=== PATIENT | female | born 1965 | race Hispanic/Latino ===

== ENCOUNTER 2023-04-11 15:19 | Inpatient (IN) | payer SELFPAY ==
[2023-04-11] VITALS (21 sets, daily range): BP systolic 89–116; BP diastolic 6–61; PULSE 85–96; RESP 12–22; TEMP 36; O2SAT 96–100; BMI 27.5
[2023-04-11] MEDS: SODIUM CHLORIDE 0.9% 1,000 ML 1000 ML IV ×2 (15:27→16:50)
--- NOTE | 2023-04-11 15:34 | ED_ITS ---
HPI - General Adult General Chief complaint: Diabetic Problem Stated complaint: DIABETES/ HEART RATE Time Seen by Provider: 04/11/23 15:20 Source: patient and family Mode of arrival: Family Vehicle Limitations: language barrier History of Present Illness HPI narrative: Patient is a 58-year-old female. Is an insulin-dependent diabetic. Has been out of all of her medication for at least the past 24 hours. She has been out on [facility] for the past several days. She left her medication in [place]. She was seen yesterday and her blood sugar was elevated. It was recommended to her to come to the emergency department but they did not come until today. There is no signs of any trauma. Her has been providing much of the HPI has the patient has been unable to secondary to some altered mental status. She was able to state that she was not having chest pain or shortness of breath. There has been no recent illnesses. No recent fevers. Language line was used for this discussion. Related Data Home Medications Medication Instructions Recorded Confirmed losartan 50 mg tablet 50 mg PO DAILY 02/21/22 02/21/22 metformin 500 mg tablet 500 mg PO DAILY 02/21/22 02/21/22 Previous Rx's Medication Instructions Recorded prednisolone acetate 1 % eye See Rx Instructions .Route 02/21/22 drops,suspension (Pred Forte) .COMPLEX #5 mL Allergies Allergy/AdvReac Type Severity Reaction Status Date / Time No Known Drug Allergies Allergy Verified 04/11/23 15:35 Review of Systems Review of Systems Narrative: See HPI. Review of systems very limited secondary to patient's altered mental status. Patient History Medical History Diabetes Social History Smoking Status: Unknown if ever smoked Exam Initial Vital Signs Initial Vital Signs: Vital Signs Temperature 96.8 F L 04/11/23 15:19 Pulse Rate 89 04/11/23 15:19 Respiratory Rate 17 04/11/23 15:19 Blood Pressure 109/61 04/11/23 15:19 Pulse Oximetry 96 04/11/23 15:19 Oxygen Delivery Method Room Air 04/11/23 15:19 Const General: cooperative and ill appearing HENVA Head: normal to inspection and normocephalic Mouth: oral mucosae normal Resp Effort & Inspection: normal respiratory effort Auscultation: clear to auscultation bilaterally Cardio Rate: regular rate Rhythm: regular rhythm GI Inspection: normal to inspection and non-distended Skin General: no rashes or lesions noted Neuro General: patient alert, patient awake and moves all extremities Cognition: abnormal cognition Extrem General: No edema Scores GCS Yadira coma scale eye opening: Spontaneous [place] coma scale verbal response: Words Yadira coma scale motor response: Obey commands Yadira coma scale total score: 13 Course Orders Ordered: ED Orders 04/11/23 15:22 EKG-12 Lead Stat 04/11/23 15:34 Urinalysis and Microscopic Stat Urine Culture Stat Urine Drug Screen, Rapid Stat 04/11/23 15:43 VBG [Venous Blood Gas] Stat 04/11/23 15:45 Acetaminophen Stat Ammonia (NH3) Stat Complete Blood Count AUTO DIFF Stat Comprehensive Metabolic Panel Stat Ethanol (ETOH) Stat Ketones (Beta-Hydroxybutyrate) Stat Lactate (Lactic Acid) Stat Lipase Stat Magnesium Stat Phosphorous Stat Procalcitonin Stat Salicylate Stat Thyroid Stimulating Hormone Stat Troponin & CK Cardiac Panel Stat 04/11/23 16:05 Blood Culture Stat Acetaminophen (Acetaminophen 325 Mg Tablet) 650 mg PO Q6H PRN PRN Reason: Fever/Mild Pain (1-3) Dextrose (Dextrose 50 % In Water 25 Gm/50 Ml Syringe) 25 gm IV PRN PRN PRN Reason: Hypoglycemia Heparin Sodium (Porcine) (Heparin 5,000 Unit/Ml Vial) 5,000 unit SUBCUT BID GUANACO Sodium Chloride (Normal Saline 0.9%) 1,000 mls @ 200 mls/hr IV CONT GUANACO INSULIN DRIP PREMIX (Myxredlin Drip Premix) 100 unit in 100 mls @ 6 mls/hr IV TITRATE GUANACO; Protocol Last Admin: 04/11/23 17:05 Dose: 6 ml/hr, 6 mls/hr Documented By: SHANNA Co-signed By: TONI Metoclopramide HCl (Metoclopramide 10 Mg/2 Ml Inj) 10 mg IV Q6HR PRN PRN Reason: Nausea And Vomiting Naloxone HCl (Naloxone 0.4 Mg/Ml Vial) 0.2 mg IV Q2MIN PRN PRN Reason: Opiate Reversal Ondansetron HCl (Ondansetron 4 Mg/2 Ml Inj) 4 mg IV Q4HR PRN PRN Reason: Nausea And Vomiting Discontinued Medications Sodium Chloride (Normal Saline 0.9%) 1,000 mls @ 1,000 mls/hr IV BOLUS ONE Stop: 04/11/23 16:20 Last Infusion: 04/11/23 16:50 Dose: 0 mls/hr Documented By: Admin: 04/11/23 15:27 Dose: 1,000 mls/hr Documented By: TONI(2) Sodium Chloride (Normal Saline 0.9%) 1,000 mls @ 1,000 mls/hr IV BOLUS ONE Stop: 04/11/23 17:18 Last Admin: 04/11/23 16:50 Dose: 1,000 mls/hr Documented By: SHANNA Insulin Human Regular (Insulin Regular 100 Unit/Ml 3 Ml Vial) 11 unit IV NOW ONE Stop: 04/11/23 16:34 Last Admin: 04/11/23 16:51 Dose: 11 unit Documented By: SHANNA Co-signed By: TONI Vital Signs Vital signs: Vital Signs - 8 hr 04/11/23 15:19 Temperature 96.8 F L Pulse Rate 89 Respiratory Rate 17 Blood Pressure 109/61 Pulse Oximetry 96 Oxygen Delivery Method Room Air Medical Decision Making Medical Records Medical records reviewed: Yes I reviewed the patient's medical records. Lab Data Lab results reviewed: Yes I reviewed the patient's lab results. 04/11/23 15:45 04/11/23 15:45 Labs: Lab Results 04/11/23 04/11/23 04/11/23 Range/Units 15:43 15:45 15:45 WBC 25.8 H (4.5-11.0) X10^3/uL RBC 4.12 (4.0-5.2) X10^6/uL Hgb 12.2 (12.0-16.0) g/dL Hct 35.8 L (36-46) % MCV 86.9 (80-100) fL MCH 29.6 (26-34) PG MCHC 34.0 (30-36) % RDW 13.2 (11.6-14.8) % Plt Count 320 (150-400) X10^3/uL Neut % (Auto) Not Reportable Lymph % (Auto) Not Reportable [place] % (Auto) Not Reportable Eos % (Auto) Not Reportable Baso % (Auto) Not Reportable Lymph # (Auto) Not Reportable [place] # (Auto) Not Reportable Baso # (Auto) Not Reportable Total Counted 100 Seg Neutrophils % 79.0 H (38-70) % Band Neutrophils % 6.0 (3-7) % Lymphocytes % (Manual) 5.0 L (25-45) % Atypical Lymphs % 1.0 H ( - 0) % Monocytes % (Manual) 8.0 (2-11) % Metamyelocytes % 1.0 H (-0) % Neutrophils # (Manual) 41736 H (4374-3974) /uL Smudge Cells 1+ H RBC Morphology See below Antonia Cells 1+ H VBG pH 7.15 L* (7.33-7.43) VBG pCO2 27.6 L (45-50) mmHg VBG pO2 42 (35-45) mmHg VBG HCO3 10 L (24-28) mmol/L VBG Total CO2 11 L (24-29) mmol/L VBG O2 Saturation 65 L (70-75) % VBG Base Excess -19.0 L (0-4) mmol/L FiO2 21 Sodium 111 L* (137-145) mmol/L Potassium 4.3 (3.4-5.1) mmol/L Chloride 85 L (98-107) mmol/L Carbon Dioxide 6 L* (22-32) mmol/L BUN 68 H (7-17) mg/dL Creatinine 2.55 H (0.52-1.04) mg/dL Estimated GFR 22 L (>60) mL/min BUN/Creatinine Ratio 26.7 H (6-22) Glucose 625 H* (70-100) mg/dL Lactate (0.7-2.1) mmol/L Calcium 9.2 (8.4-10.2) mg/dL Phosphorus (2.5-4.5) mg/dL Magnesium (1.6-2.3) mg/dL Total Bilirubin 0.5 (0.2-1.3) mg/dL AST 17 (14-36) IU/L ALT 16 (<35) IU/L Alkaline Phosphatase 183 H (38-126) U/L Ammonia (9-30) umol/L Total Creatine Kinase (30-135) U/L Troponin I (0.01-0.034) ng/mL Total Protein 7.4 (6.3-8.2) g/dL Albumin 3.6 (3.5-5.0) g/dL Globulin 3.8 (1.7-4.1) g/dL Albumin/Globulin Ratio 0.9 L (1.0-2.8) Lipase (23-300) U/L Procalcitonin (<0.5) ng/mL TSH (0.47-4.68) uIU/mL Salicylates (<20) mg/dL Acetaminophen < 10 (10-30) ug/mL Ethyl Alcohol < 10 ( - 10) mg/dL Ketones 4.04 H (<0.27) mmol/L 04/11/23 04/11/23 04/11/23 Range/Units 15:45 15:45 15:45 WBC (4.5-11.0) X10^3/uL RBC (4.0-5.2) X10^6/uL Hgb (12.0-16.0) g/dL Hct (36-46) % MCV (80-100) fL MCH (26-34) PG MCHC (30-36) % RDW (11.6-14.8) % Plt Count (150-400) X10^3/uL Neut % (Auto) Lymph % (Auto) [place] % (Auto) Eos % (Auto) Baso % (Auto) Lymph # (Auto) [place] # (Auto) Baso # (Auto) Total Counted Seg Neutrophils % (38-70) % Band Neutrophils % (3-7) % Lymphocytes % (Manual) (25-45) % Atypical Lymphs % ( - 0) % Monocytes % (Manual) (2-11) % Metamyelocytes % (-0) % Neutrophils # (Manual) (8458-8380) /uL Smudge Cells RBC Morphology [place] Cells VBG pH (7.33-7.43) VBG pCO2 (45-50) mmHg VBG pO2 (35-45) mmHg VBG HCO3 (24-28) mmol/L VBG Total CO2 (24-29) mmol/L VBG O2 Saturation (70-75) % VBG Base Excess (0-4) mmol/L FiO2 Sodium (137-145) mmol/L Potassium (3.4-5.1) mmol/L Chloride (98-107) mmol/L Carbon Dioxide (22-32) mmol/L BUN (7-17) mg/dL Creatinine (0.52-1.04) mg/dL Estimated GFR (>60) mL/min BUN/Creatinine Ratio (6-22) Glucose (70-100) mg/dL Lactate 1.1 (0.7-2.1) mmol/L Calcium (8.4-10.2) mg/dL Phosphorus 3.5 (2.5-4.5) mg/dL Magnesium 2.5 H (1.6-2.3) mg/dL Total Bilirubin (0.2-1.3) mg/dL AST (14-36) IU/L ALT (<35) IU/L Alkaline Phosphatase (38-126) U/L Ammonia < 9 L (9-30) umol/L Total Creatine Kinase 99 (30-135) U/L Troponin I 0.095 H (0.01-0.034) ng/mL Total Protein (6.3-8.2) g/dL Albumin (3.5-5.0) g/dL Globulin (1.7-4.1) g/dL Albumin/Globulin Ratio (1.0-2.8) Lipase 896 H (23-300) U/L Procalcitonin 8.85 H (<0.5) ng/mL TSH (0.47-4.68) uIU/mL Salicylates < 1.0 (<20) mg/dL Acetaminophen (10-30) ug/mL Ethyl Alcohol ( - 10) mg/dL Ketones (<0.27) mmol/L 04/11/23 Range/Units 15:45 WBC (4.5-11.0) X10^3/uL RBC (4.0-5.2) X10^6/uL Hgb (12.0-16.0) g/dL Hct (36-46) % MCV (80-100) fL MCH (26-34) PG MCHC (30-36) % RDW (11.6-14.8) % Plt Count (150-400) X10^3/uL Neut % (Auto) Lymph % (Auto) [place] % (Auto) Eos % (Auto) Baso % (Auto) Lymph # (Auto) [place] # (Auto) Baso # (Auto) Total Counted Seg Neutrophils % (38-70) % Band Neutrophils % (3-7) % Lymphocytes % (Manual) (25-45) % Atypical Lymphs % ( - 0) % Monocytes % (Manual) (2-11) % Metamyelocytes % (-0) % Neutrophils # (Manual) (6914-5752) /uL Smudge Cells RBC Morphology Antonia Cells VBG pH (7.33-7.43) VBG pCO2 (45-50) mmHg VBG pO2 (35-45) mmHg VBG HCO3 (24-28) mmol/L VBG Total CO2 (24-29) mmol/L VBG O2 Saturation (70-75) % VBG Base Excess (0-4) mmol/L FiO2 Sodium (137-145) mmol/L Potassium (3.4-5.1) mmol/L Chloride (98-107) mmol/L Carbon Dioxide (22-32) mmol/L BUN (7-17) mg/dL Creatinine (0.52-1.04) mg/dL Estimated GFR (>60) mL/min BUN/Creatinine Ratio (6-22) Glucose (70-100) mg/dL Lactate (0.7-2.1) mmol/L Calcium (8.4-10.2) mg/dL Phosphorus (2.5-4.5) mg/dL Magnesium (1.6-2.3) mg/dL Total Bilirubin (0.2-1.3) mg/dL AST (14-36) IU/L ALT (<35) IU/L Alkaline Phosphatase (38-126) U/L Ammonia (9-30) umol/L Total Creatine Kinase (30-135) U/L Troponin I (0.01-0.034) ng/mL Total Protein (6.3-8.2) g/dL Albumin (3.5-5.0) g/dL Globulin (1.7-4.1) g/dL Albumin/Globulin Ratio (1.0-2.8) Lipase (23-300) U/L Procalcitonin (<0.5) ng/mL TSH 6.28 H (0.47-4.68) uIU/mL Salicylates (<20) mg/dL Acetaminophen (10-30) ug/mL Ethyl Alcohol ( - 10) mg/dL Ketones (<0.27) mmol/L Point of Care Testing Glucose POC 500 Point of care testing: Point of Care Testing Glucose POC 500 MDM Narrative Medical decision making narrative: Patient's participation in the exam is very limited secondary to her altered mental status. She is maintaining her airway and was able to answer some questions but her provided most of the review of systems and HPI. Patient has a pH of 7.1. Is hyperglycemic and has ketones. Her presenting symptoms and labs are consistent with DKA. Her potassium is 4.4. Her creatinine is elevated most likely secondary to dehydration. She also has a l eukocytosis most likely secondary to her DKA and dehydration as well. I have low suspicion for infection. She is hyponatremic and is still somewhat hyponatremic even with correction based on her hyperglycemia. She is an anion gap of 28. Patient does require admission to the hospital for further evaluation and treatment. I did discuss the case with Dr. Olson hospitalist on-call who will admit. Discharge Plan Departure Patient Disposition: Admitted As Inpatient Clinical Impression: DKA (diabetic ketoacidosis) Admit Date/Time: 04/11/23 16:29 Admit Provider: Eliu Olson
[2023-04-11 15:55] LABS: Fractionated Inspired Oxygen 21; HCO3 VBG 10 mmol/L (24-28); Oxygen Saturation VBG 65 % (70-75); PCO2 VBG 27.6 mmHg (45-50); PO2 VBG 42 mmHg (35-45); Total CO2 VBG 11 mmol/L (24-29); pH VBG 7.15 (7.33-7.43)
[2023-04-11 16:01] LABS: Hematocrit 35.8 % (36-46); Hemoglobin 12.2 g/dL (12.0-16.0); Mean Corpuscular Hemoglobin 29.6 PG (26-34); Mean Corpuscular Volume 86.9 fL (80-100); Platelet Count 320 X10^3/uL (150-400); Red Blood Cell Count 4.12 X10^6/uL (4.0-5.2); Red Cell Distribution Width 13.2 % (11.6-14.8); White Blood Cell Count 25.8 X10^3/uL (4.5-11.0)
[2023-04-11 16:02] LABS: Add Manual Diff / Slide Review YES; Ammonia (NH3) < 9 umol/L (9-30)
[2023-04-11 16:04] LABS: Lactate (Lactic Acid) 1.1 mmol/L (0.7-2.1)
[2023-04-11 16:05] LABS: Creatine Kinase 99 U/L (30-135); Lipase 896 U/L (23-300); Magnesium 2.5 mg/dL (1.6-2.3); Phosphorous 3.5 mg/dL (2.5-4.5); Salicylate < 1.0 mg/dL (<20)
[2023-04-11 16:15] LABS: Alanine Aminotransferase 16 IU/L (<35); Albumin 3.6 g/dL (3.5-5.0); Albumin Globulin Ratio 0.9 (1.0-2.8); Alkaline Phosphatase 183 U/L (38-126); Aspartate Aminotransferase 17 IU/L (14-36); BUN Creatinine Ratio 26.7 (6-22); Bilirubin Total 0.5 mg/dL (0.2-1.3); Blood Urea Nitrogen 68 mg/dL (7-17); Calcium 9.2 mg/dL (8.4-10.2); Chloride 85 mmol/L (98-107); Estimated Glomerular Filt Rate 22 mL/min (>60); Globulin 3.8 g/dL (1.7-4.1); HEMOLYSIS 22 (0-50); Potassium 4.3 mmol/L (3.4-5.1); Total Protein 7.4 g/dL (6.3-8.2)
[2023-04-11 16:17] LABS: Ketones (Beta-Hydroxybutyrate) 4.04 mmol/L (<0.27); Troponin I 0.095 ng/mL (0.01-0.034)
[2023-04-11 16:22] LABS: Procalcitonin 8.85 ng/mL (<0.5)
[2023-04-11 16:25] LABS: Burr Cells 1+; Neutrophils Absolute Manual 21930 /uL (3000-5900); Smudge Cells 1+; Total Cells Counted 100
[2023-04-11 16:29] LABS: Carbon Dioxide 6 mmol/L (22-32); Sodium 111 mmol/L (137-145)
[2023-04-11 16:30] LABS: Glucose 625 mg/dL (70-100)
[2023-04-11 16:34] LABS: Acetaminophen < 10 ug/mL (10-30); Ethanol (ETOH) < 10 mg/dL
[2023-04-11 16:37] LABS: Thyroid Stimulating Hormone 6.28 uIU/mL (0.47-4.68)
[2023-04-11] MEDS: INSULIN REGULAR 100 UNIT/ML 3 ML VIAL 11 UNIT IV (16:51)
[2023-04-11] MEDS: INSULIN DRIP PREMIX 100 UNIT/100 ML PLAST..BAG 6 UNIT IV (17:05)
--- NOTE | 2023-04-11 17:05 | DI.RAD.S_ITS ---
PROCEDURE: XR CHEST 1V INDICATIONS: DKA TECHNIQUE: One view of the chest was acquired. COMPARISON: None. FINDINGS: Surgical changes and devices: None. Lungs and pleura: Low lung volumes are noted. This causes a crowded appearance to the lung markings and limits evaluation. On this semiupright portable chest examination, no large pneumothorax or large pleural effusions are seen. No focal infiltrates are seen. Mediastinum: Mediastinal contours appear normal. Heart size is normal. Bones and chest wall: No suspicious bony lesions. Age-appropriate bony degenerative changes are seen. Left shoulder calcific tendinopathy can be seen. IMPRESSION: Limited portable chest examination, without a significant cardiopulmonary abnormality identified. Dictated by: Rasta Gasca M.D. on 04/11/2023 at 17:51 Approved by: Rasta Gasca M.D. on 04/11/2023 at 17:52
--- NOTE | 2023-04-11 17:09 | PM.HP.1 ---
History of Present Illness History of Present Illness Date Patient Seen: 04/11/23 Time Patient Seen: 15:30 Chief complaint: DIABETES/ HEART RATE Narrative: Patient is French speaking only 58-year-old female with history of diabetes managed with insulin and metformin, hypertension presents to the ED with concerns of elevated blood sugar and not feeling well. [employer] services are utilized in getting history from and and her . Patient indicates she has been out of her insulin for 5 days. Seems they travel back and forth from [place] and she left her insulin at home. She reports abdominal pain and nausea but denies vomiting. She denies chest pain, shortness at breath, cough or fevers. She does report urinary discomfort. In ED, she was afebrile and normotensive. Labs are concerning for glucose of 625, sodium 111, potassium 4.3, chloride 85, HC03 6, BUN 68, creatinine 2.55. Her anion gap is 20. Venous gas pH 7.15, pCO2 27, PO2 42. Additionally noted to have high procalcitonin 8.85, elevated TSH 6.28, urinalysis and chest x-ray are pending. [facility] Social History Smoking Status: Unknown if ever smoked Meds Home Medications and Allergies Home Medications Medication Instructions Recorded Confirmed Type losartan 50 mg tablet 50 mg PO DAILY 02/21/22 02/21/22 History metformin 500 mg tablet 500 mg PO DAILY 02/21/22 02/21/22 History prednisolone acetate 1 % eye See Rx Instructions .Route 02/21/22 02/21/22 Rx drops,suspension (Pred Forte) .COMPLEX #5 mL Allergies Allergy/AdvReac Type Severity Reaction Status Date / Time No Known Drug Allergies Allergy Verified 04/11/23 15:35 Exam Vital Signs (past 8 hours): - 04/11/23 15:19 Temperature 96.8 F L Pulse Rate 89 Respiratory Rate 17 Blood Pressure 109/61 Pulse Oximetry 96 Oxygen Delivery Method Room Air Oxygen Delivery Method Room Air Narrative Exam Narrative: General: Lethargic female well-developed well-nourished HEENT: Anicteric, EOMI, oropharynx dry Neck: No lymphadenopathy Lungs: Clear to auscultation Heart: Regular rhythm, no murmur Abdomen: Nondistended, nontender, no HSM Extremities: Warm, nonedematous Neurological: Oriented to person and place Objective Labs 04/11/23 15:45 04/11/23 15:45 Labs: Laboratory Results - last 24 hr 04/11/23 04/11/23 04/11/23 15:43 15:45 15:45 WBC 25.8 H RBC 4.12 Hgb 12.2 Hct 35.8 L MCV 86.9 MCH 29.6 MCHC 34.0 RDW 13.2 Plt Count 320 Neut % (Auto) Not Reportable Lymph % (Auto) Not Reportable [place] % (Auto) Not Reportable Eos % (Auto) Not Reportable Baso % (Auto) Not Reportable Lymph # (Auto) Not Reportable [place] # (Auto) Not Reportable Baso # (Auto) Not Reportable Total Counted 100 Seg Neutrophils % 79.0 H Band Neutrophils % 6.0 Lymphocytes % (Manual) 5.0 L Atypical Lymphs % 1.0 H Monocytes % (Manual) 8.0 Metamyelocytes % 1.0 H Neutrophils # (Manual) 68775 H Smudge Cells 1+ H RBC Morphology See below Antonia Cells 1+ H VBG pH 7.15 L* VBG pCO2 27.6 L VBG pO2 42 VBG HCO3 10 L VBG Total CO2 11 L VBG O2 Saturation 65 L VBG Base Excess -19.0 L FiO2 21 Sodium 111 L* Potassium 4.3 Chloride 85 L Carbon Dioxide 6 L* BUN 68 H Creatinine 2.55 H Estimated GFR 22 L BUN/Creatinine Ratio 26.7 H Glucose 625 H* Lactate Calcium 9.2 Phosphorus Magnesium Total Bilirubin 0.5 AST 17 ALT 16 Alkaline Phosphatase 183 H Ammonia Total Creatine Kinase Troponin I Total Protein 7.4 Albumin 3.6 Globulin 3.8 Albumin/Globulin Ratio 0.9 L Lipase Procalcitonin TSH Salicylates Acetaminophen < 10 Ethyl Alcohol < 10 Ketones 4.04 H 04/11/23 04/11/23 04/11/23 15:45 15:45 15:45 WBC RBC Hgb Hct MCV MCH MCHC RDW Plt Count Neut % (Auto) Lymph % (Auto) [place] % (Auto) Eos % (Auto) Baso % (Auto) Lymph # (Auto) [place] # (Auto) Baso # (Auto) Total Counted Seg Neutrophils % Band Neutrophils % Lymphocytes % (Manual) Atypical Lymphs % Monocytes % (Manual) Metamyelocytes % Neutrophils # (Manual) Smudge Cells RBC Morphology [place] Cells VBG pH VBG pCO2 VBG pO2 VBG HCO3 VBG Total CO2 VBG O2 Saturation VBG Base Excess FiO2 Sodium Potassium Chloride Carbon Dioxide BUN Creatinine Estimated GFR BUN/Creatinine Ratio Glucose Lactate 1.1 Calcium Phosphorus 3.5 Magnesium 2.5 H Total Bilirubin AST ALT Alkaline Phosphatase Ammonia < 9 L Total Creatine Kinase 99 Troponin I 0.095 H Total Protein Albumin Globulin Albumin/Globulin Ratio Lipase 896 H Procalcitonin 8.85 H TSH Salicylates < 1.0 Acetaminophen Ethyl Alcohol Ketones 04/11/23 15:45 WBC RBC Hgb Hct MCV MCH MCHC RDW Plt Count Neut % (Auto) Lymph % (Auto) [place] % (Auto) Eos % (Auto) Baso % (Auto) Lymph # (Auto) [place] # (Auto) Baso # (Auto) Total Counted Seg Neutrophils % Band Neutrophils % Lymphocytes % (Manual) Atypical Lymphs % Monocytes % (Manual) Metamyelocytes % Neutrophils # (Manual) Smudge Cells RBC Morphology Antonia Cells VBG pH VBG pCO2 VBG pO2 VBG HCO3 VBG Total CO2 VBG O2 Saturation VBG Base Excess FiO2 Sodium Potassium Chloride Carbon Dioxide BUN Creatinine Estimated GFR BUN/Creatinine Ratio Glucose Lactate Calcium Phosphorus Magnesium Total Bilirubin AST ALT Alkaline Phosphatase Ammonia Total Creatine Kinase Troponin I Total Protein Albumin Globulin Albumin/Globulin Ratio Lipase Procalcitonin TSH 6.28 H Salicylates Acetaminophen Ethyl Alcohol Ketones Assessment & Plan Assessment & Plan narrative: 1. Acute diabetic ketoacidosis -glucose 625, pH 7.15, AG 20, normal lactate supportive of DKA in patient who has been without her insulin for some time line -initial 2 L bolus in ED, received 11 units (0.15/kg) bolus IV insulin and started on insulin drip -titrate insulin drip per DKA protocol -NS at 200 cc/hour after bolus, switch to D5 NS and glucose < 250 -monitor lytes closely, especially K, with q.4 hour BMP -check A1c to assess long-term control 2. Acute hyponatremia due to hypovolemia -corrected sodium 119 -continue monitoring with q.4 hours labs and avoid rapid correction 3. Acute kidney injury -managed with IV hydration and DKA treatment line -monitor urine output -monitor lytes, BUN and creatinine 4. Leukocytosis, elevated procalcitonin -elevated WBC likely due to DKA -check UA and chest x-ray to rule out infection 5. Elevated TSH -mild elevated TSH of 6.28 -check free T4 -firm with patient whether taking thyroid medication 6. Elevated lipase -likely secondary to DKA, not pancreatitis Code status: Full Surrogate: Spouse DVT prophylaxis: SubQ heparin Patient is admitted to the ICU with 1 hour of critical care management. In addition tele-ICU service has been consulted in care of this patient.
[2023-04-11 18:00] LABS: Free T4, Direct Thyroxine 0.99 ng/dL (0.78-2.19)
--- NOTE | 2023-04-11 18:24 | PC.NURSE ---
set decorator note: assisted RN with love catheter input and collected urine sample
[2023-04-11 18:28] LABS: Appearance Urine UA CLEAR; Bilirubin Urine UA 1+ (NEGATIVE); Color Urine UA YELLOW; Glucose Urine UA 3+ g/dL (Negative); Ketones Urine UA 1+ (NEGATIVE); Leukocyte Esterase Urine UA TRACE (NEGATIVE); Nitrite Urine UA POSITIVE (Negative); Occult Blood Urine UA 2+ (Negative); Protein Urine UA 1+ (Negative); Specific Gravity Urine UA 1.015 (1.000-1.035)
[2023-04-11 18:30] LABS: pH Urine UA 5.5 (4.5-8.0)
[2023-04-11 18:41] LABS: Bacteria Urine Many (>30); RBC Urine 1-5/HPF (0-5/HPF); Renal Epithelial Cells Urine 1-5/HPF (0-1/HPF); Squamous Epithelial Cell Urine 1-5 /HPF (0-5/HPF); WBC Urine 10-30/HPF (0-5/HPF)
--- NOTE | 2023-04-11 18:41 | PC.ADMIT ---
[facility] Admission Note: The patient,Hiral Ibanez,58 y/o, was given written information regarding hospital policies, unit procedures and contact persons. Patient's smoking status: Unknown if ever smoked. Vital Signs - 8 hr 04/11/23 15:19 04/11/23 17:23 04/11/23 15:31 Temperature 96.8 F L Pulse Rate 89 91 H Respiratory Rate 17 14 Blood Pressure 109/61 109/61 109/61 Pulse Oximetry 96 98 Oxygen Delivery Method Room Air Room Air 04/11/23 16:00 04/11/23 16:30 04/11/23 17:00 Temperature Pulse Rate 85 90 90 Respiratory Rate 16 14 20 Blood Pressure Pulse Oximetry 100 100 100 Oxygen Delivery Method 04/11/23 17:30 04/11/23 18:00 Temperature Pulse Rate 91 H 90 Respiratory Rate 13 14 Blood Pressure Pulse Oximetry 100 Oxygen Delivery Method Pt arrived with via gurney from ER, insulin infusing at 6 units/hr, NS bolus infusing, both pt and are albanian speaking only. Jaja Charge nurse at bedside to translate. FSBG checked 382, insulin gtt titrated according to protocol. Oriented to room and call light system, bed low and locked call light within reach, will continue to monitor.
[2023-04-11 18:42] LABS: Amorphous Sediment Urine 1+; Culture Indicated Urine Specimen Cultured; Hyaline Casts Urine 1-5/LPF
[2023-04-11 18:44] LABS: Ictotest Urine Positive (Negative)
[2023-04-11] MEDS: SODIUM CHLORIDE 0.9% 1,000 ML 200 ML IV (19:29)
[2023-04-11 20:31] LABS: BUN Creatinine Ratio 30.8 (6-22); Blood Urea Nitrogen 60 mg/dL (7-17); Calcium 8.6 mg/dL (8.4-10.2); Chloride 98 mmol/L (98-107); Estimated Glomerular Filt Rate 30 mL/min (>60); Glucose 256 mg/dL (70-100); HEMOLYSIS < 15 (0-50); Potassium 3.2 mmol/L (3.4-5.1); Sodium 121 mmol/L (137-145)
[2023-04-11 20:41] LABS: Carbon Dioxide 9 mmol/L (22-32)
--- NOTE | 2023-04-11 20:46 | PM.CN.EICU ---
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 Pt labs significant AG acidosis, but also eleavted lipase PFSH Medical History Diabetes Social History household members: spouse Smoking Status: Unknown if ever smoked Current Medications Current Medications Medications: Home Medications losartan 50 mg tablet 50 mg PO DAILY 02/21/22 [History Confirmed 04/11/23] metformin 500 mg tablet 500 mg PO DAILY 02/21/22 [History Confirmed 04/11/23] prednisolone acetate 1 % eye drops,suspension (Pred Forte) See Rx Instructions .Route .COMPLEX #5 mL 02/21/22 [Rx Confirmed 04/11/23] insulin NPH isoph U-100 human 100 unit/mL subcutaneous cartridge 30 unit SUBCUT BID 04/11/23 [History Confirmed 04/11/23] Visit Medications (administered) Generic Name Dose Route Start Last Admin Trade Name Freq PRN Reason Stop Dose Admin Sodium Chloride 1,000 mls @ 200 mls/hr 04/11/23 16:30 04/11/23 19:29 Normal Saline 0.9% IV 200 mls/hr CONT GUANACO Administration INSULIN DRIP PREMIX 100 unit in 100 mls @ 6 mls/hr 04/11/23 16:45 04/11/23 19:00 Myxredlin Drip Premix IV 10.6 ml/hr TITRATE GUANACO 10.6 mls/hr Titration Protocol Exam Vital Signs (past 8 hours): - 04/11/23 20:00 04/11/23 20:00 04/11/23 15:19 Temperature 96.8 F L 96.8 F L Pulse Rate 88 89 Respiratory Rate 17 17 Blood Pressure 97/50 L 109/61 Pulse Oximetry 100 96 Oxygen Delivery Method Room Air 04/11/23 17:23 04/11/23 15:31 04/11/23 16:00 Temperature Pulse Rate 91 H 85 Respiratory Rate 14 16 Blood Pressure 109/61 109/61 Pulse Oximetry 98 100 Oxygen Delivery Method Room Air 04/11/23 16:30 04/11/23 17:00 04/11/23 17:30 Temperature Pulse Rate 90 90 91 H Respiratory Rate 14 20 13 Blood Pressure Pulse Oximetry 100 100 100 Oxygen Delivery Method 04/11/23 18:00 04/11/23 16:50 04/11/23 18:32 Temperature Pulse Rate 90 92 H Respiratory Rate 14 Blood Pressure Pulse Oximetry 100 Oxygen Delivery Method Room Air 04/11/23 18:51 04/11/23 18:51 04/11/23 19:00 Temperature Pulse Rate 90 Respiratory Rate 19 Blood Pressure 96/52 L 95/51 L Pulse Oximetry 100 Oxygen Delivery Method 04/11/23 19:00 04/11/23 19:30 04/11/23 19:30 Temperature Pulse Rate 89 89 Respiratory Rate 15 12 Blood Pressure 98/52 L Pulse Oximetry 100 100 Oxygen Delivery Method Oxygen Delivery Method Room Air Narrative Exam Narrative: surrogae for full exam is primary team Const Other: awake, NAD Chest Other: symmetric chest rise Cardio Other: nsr Objective Labs 04/11/23 15:45 04/11/23 20:05 Labs: Laboratory Results - last 24 hr 04/11/23 04/11/23 04/11/23 15:43 15:45 15:45 WBC 25.8 H RBC 4.12 Hgb 12.2 Hct 35.8 L MCV 86.9 MCH 29.6 MCHC 34.0 RDW 13.2 Plt Count 320 Neut % (Auto) Not Reportable Lymph % (Auto) Not Reportable [place] % (Auto) Not Reportable Eos % (Auto) Not Reportable Baso % (Auto) Not Reportable Lymph # (Auto) Not Reportable [place] # (Auto) Not Reportable Baso # (Auto) Not Reportable Total Counted 100 Seg Neutrophils % 79.0 H Band Neutrophils % 6.0 Lymphocytes % (Manual) 5.0 L Atypical Lymphs % 1.0 H Monocytes % (Manual) 8.0 Metamyelocytes % 1.0 H Neutrophils # (Manual) 77706 H Smudge Cells 1+ H RBC Morphology See below [place] Cells 1+ H VBG pH 7.15 L* VBG pCO2 27.6 L VBG pO2 42 VBG HCO3 10 L VBG Total CO2 11 L VBG O2 Saturation 65 L VBG Base Excess -19.0 L FiO2 21 Sodium 111 L* Potassium 4.3 Chloride 85 L Carbon Dioxide 6 L* BUN 68 H Creatinine 2.55 H Estimated GFR 22 L BUN/Creatinine Ratio 26.7 H Glucose 625 H* Lactate Calcium 9.2 Phosphorus Magnesium Total Bilirubin 0.5 AST 17 ALT 16 Alkaline Phosphatase 183 H Ammonia Total Creatine Kinase Troponin I Total Protein 7.4 Albumin 3.6 Globulin 3.8 Albumin/Globulin Ratio 0.9 L Lipase Procalcitonin TSH Free T4 Urine Color Urine Appearance Urine pH Ur Specific [place] Urine Protein Urine Glucose (UA) Urine Ketones Urine Occult Blood Urine Nitrate Urine Bilirubin Ur Bilirubin Confirm Urine Urobilinogen Ur Leukocyte Esterase Urine RBC Urine WBC Ur Squamous Epith Cells Ur Renal Epithelial Cell Amorphous Sediment Urine Bacteria Hyaline Casts Ur Culture Indicated? Salicylates Acetaminophen < 10 Ethyl Alcohol < 10 Ketones 4.04 H 04/11/23 04/11/23 04/11/23 15:45 15:45 15:45 WBC RBC Hgb Hct MCV MCH MCHC RDW Plt Count Neut % (Auto) Lymph % (Auto) [place] % (Auto) Eos % (Auto) Baso % (Auto) Lymph # (Auto) [place] # (Auto) Baso # (Auto) Total Counted Seg Neutrophils % Band Neutrophils % Lymphocytes % (Manual) Atypical Lymphs % Monocytes % (Manual) Metamyelocytes % Neutrophils # (Manual) Smudge Cells RBC Morphology [place] Cells VBG pH VBG pCO2 VBG pO2 VBG HCO3 VBG Total CO2 VBG O2 Saturation VBG Base Excess FiO2 Sodium Potassium Chloride Carbon Dioxide BUN Creatinine Estimated GFR BUN/Creatinine Ratio Glucose Lactate 1.1 Calcium Phosphorus 3.5 Magnesium 2.5 H Total Bilirubin AST ALT Alkaline Phosphatase Ammonia < 9 L Total Creatine Kinase 99 Troponin I 0.095 H Total Protein Albumin Globulin Albumin/Globulin Ratio Lipase 896 H Procalcitonin 8.85 H TSH Free T4 Urine Color Urine Appearance Urine pH Ur Specific [place] Urine Protein Urine Glucose (UA) Urine Ketones Urine Occult Blood Urine Nitrate Urine Bilirubin Ur Bilirubin Confirm Urine Urobilinogen Ur Leukocyte Esterase Urine RBC Urine WBC Ur Squamous Epith Cells Ur Renal Epithelial Cell Amorphous Sediment Urine Bacteria Hyaline Casts Ur Culture Indicated? Salicylates < 1.0 Acetaminophen Ethyl Alcohol Ketones 04/11/23 04/11/23 04/11/23 15:45 15:45 18:12 WBC RBC Hgb Hct MCV MCH MCHC RDW Plt Count Neut % (Auto) Lymph % (Auto) [place] % (Auto) Eos % (Auto) Baso % (Auto) Lymph # (Auto) [place] # (Auto) Baso # (Auto) Total Counted Seg Neutrophils % Band Neutrophils % Lymphocytes % (Manual) Atypical Lymphs % Monocytes % (Manual) Metamyelocytes % Neutrophils # (Manual) Smudge Cells RBC Morphology [place] Cells VBG pH VBG pCO2 VBG pO2 VBG HCO3 VBG Total CO2 VBG O2 Saturation VBG Base Excess FiO2 Sodium Potassium Chloride Carbon Dioxide BUN Creatinine Estimated GFR BUN/Creatinine Ratio Glucose Lactate Calcium Phosphorus Magnesium Total Bilirubin AST ALT Alkaline Phosphatase Ammonia Total Creatine Kinase Troponin I Total Protein Albumin Globulin Albumin/Globulin Ratio Lipase Procalcitonin TSH 6.28 H Free T4 0.99 Urine Color Yellow Urine Appearance Clear Urine pH 5.5 Ur Specific [place] 1.015 Urine Protein 1+ H Urine Glucose (UA) 3+ H Urine Ketones 1+ H Urine Occult Blood 2+ H Urine Nitrate Positive H Urine Bilirubin 1+ H Ur Bilirubin Confirm Positive H Urine Urobilinogen 1.0 Ur Leukocyte Esterase Trace H Urine RBC 1-5/hpf Urine WBC 10-30/hpf H Ur Squamous Epith Cells 1-5 /hpf Ur Renal Epithelial Cell 1-5/hpf H Amorphous Sediment 1+ Urine Bacteria Many (>30) H Hyaline Casts 1-5/lpf Ur Culture Indicated? Specimen cultured Salicylates Acetaminophen Ethyl Alcohol Ketones 04/11/23 20:05 WBC RBC Hgb Hct MCV MCH MCHC RDW Plt Count Neut % (Auto) Lymph % (Auto) [place] % (Auto) Eos % (Auto) Baso % (Auto) Lymph # (Auto) [place] # (Auto) Baso # (Auto) Total Counted Seg Neutrophils % Band Neutrophils % Lymphocytes % (Manual) Atypical Lymphs % Monocytes % (Manual) Metamyelocytes % Neutrophils # (Manual) Smudge Cells RBC Morphology [place] Cells VBG pH VBG pCO2 VBG pO2 VBG HCO3 VBG Total CO2 VBG O2 Saturation VBG Base Excess FiO2 Sodium 121 L D Potassium 3.2 L Chloride 98 Carbon Dioxide 9 L* BUN 60 H Creatinine 1.95 H Estimated GFR 30 L BUN/Creatinine Ratio 30.8 H Glucose 256 H D Lactate Calcium 8.6 Phosphorus Magnesium Total Bilirubin AST ALT Alkaline Phosphatase Ammonia Total Creatine Kinase Troponin I Total Protein Albumin Globulin Albumin/Globulin Ratio Lipase Procalcitonin TSH Free T4 Urine Color Urine Appearance Urine pH Ur Specific [place] Urine Protein Urine Glucose (UA) Urine Ketones Urine Occult Blood Urine Nitrate Urine Bilirubin Ur Bilirubin Confirm Urine Urobilinogen Ur Leukocyte Esterase Urine RBC Urine WBC Ur Squamous Epith Cells Ur Renal Epithelial Cell Amorphous Sediment Urine Bacteria Hyaline Casts Ur Culture Indicated? Salicylates Acetaminophen Ethyl Alcohol Ketones Assessment & Plan Assessment and plan (1) DKA (diabetic ketoacidosis): Status: Acute (2) UTI (urinary tract infection): Status: Acute Assessment & Plan narrative: supplementa o2 as needed map at goal NPO trend bmp IVF insulin gtt check TG k replacement monitor UO dvt ppx ceftriaxone f/u cx Time Spent With Patient Time with patient: 30 to 49 minutes with 50% spent counseling/coordinating care
[2023-04-11] MEDS: HEPARIN 5,000 UNIT/ML VIAL 5000 UNIT SUBCUT (20:51)
[2023-04-11] MEDS: POTASSIUM CHLORIDE IN WATER 10 MEQ/100 ML PIGGYBACK 100 MEQ IV ×4 (20:51→23:51)
[2023-04-11 21:00] LABS: Triglycerides 282 mg/dL (35-150)
[2023-04-11] MEDS: cefTRIAXone 1,000 MG in SODIUM CHLORIDE 0.9% 100 ML 200 MG IV (21:06)
[2023-04-11 21:39] LABS: MRSA (Nasal) PCR Not Detected (Not Detect)
[2023-04-11] MEDS: DEXTROSE 5%-0.45% NS 1,000 ML 200 ML IV (22:28)
[2023-04-11] MEDS: ONDANSETRON 4 MG/2 ML INJ IV (22:28)
[2023-04-12] VITALS (38 sets, daily range): BP systolic 79–146; BP diastolic 42–75; PULSE 87–104; RESP 5–20; TEMP 36.2–36.3; O2SAT 98–100
[2023-04-12 01:47] LABS: BUN Creatinine Ratio 34.8 (6-22); Blood Urea Nitrogen 49 mg/dL (7-17); Calcium 8.4 mg/dL (8.4-10.2); Carbon Dioxide 13 mmol/L (22-32); Chloride 103 mmol/L (98-107); Estimated Glomerular Filt Rate 44 mL/min (>60); Glucose 197 mg/dL (70-100); HEMOLYSIS < 15 (0-50); Potassium 3.4 mmol/L (3.4-5.1); Sodium 123 mmol/L (137-145)
[2023-04-12] MEDS: POTASSIUM CHLORIDE IN WATER 10 MEQ/100 ML PIGGYBACK 100 MEQ IV ×8 (02:06→09:36)
[2023-04-12] MEDS: DEXTROSE 5%-0.45% NS 1,000 ML 200 ML IV ×2 (02:56→08:04)
[2023-04-12] MEDS: INSULIN DRIP PREMIX 100 UNIT/100 ML PLAST..BAG 7 UNIT IV (04:53)
[2023-04-12 05:37] LABS: Add Manual Diff / Slide Review NO; Basophils Absolute Auto 0 /uL (0-100); Basophils Percent Auto 0.2 % (0-2); Eosinophils Absolute Auto 0 /uL (0-450); Eosinophils Percent Auto 0.2 % (2-4); Hematocrit 30.9 % (36-46); Hemoglobin 10.9 g/dL (12.0-16.0); Lymphocytes Absolute Auto 700 /uL (1100-4500); Lymphocytes Percent Auto 4.7 % (25-40); Mean Corpuscular HGB Conc 35.2 % (30-36); Mean Corpuscular Hemoglobin 29.1 PG (26-34); Mean Corpuscular Volume 82.9 fL (80-100); Monocytes Absolute Auto 900 /uL (0-900); Monocytes Percent Auto 6.1 % (3-14); Neutrophils Absolute Auto 13600 /uL (1500-7000); Neutrophils Percent Auto 88.8 % (50-75); Platelet Count 253 X10^3/uL (150-400); Red Blood Cell Count 3.73 X10^6/uL (4.0-5.2); Red Cell Distribution Width 13.1 % (11.6-14.8); White Blood Cell Count 15.4 X10^3/uL (4.5-11.0)
[2023-04-12 05:46] LABS: BUN Creatinine Ratio 36.7 (6-22); Blood Urea Nitrogen 40 mg/dL (7-17); Calcium 7.7 mg/dL (8.4-10.2); Carbon Dioxide 11 mmol/L (22-32); Chloride 107 mmol/L (98-107); Estimated Glomerular Filt Rate 60 mL/min (>60); Glucose 198 mg/dL (70-100); HEMOLYSIS < 15 (0-50); Potassium 3.4 mmol/L (3.4-5.1); Sodium 126 mmol/L (137-145)
--- NOTE | 2023-04-12 06:26 | PC.NURSE ---
0630- Shift note, Patient has been resting all night. Blood Glucose ranging between 300-190. Insulin gtt infusing per protocol. Last gap calculation was 8. Patient is on number 9 potassium rider. Co2 is 11. Next lab draw will be at 10am . Patient has had good urine output. Family at bedside.
--- NOTE | 2023-04-12 07:58 | P.PN_ITS ---
Subjective Subjective Date Patient Seen: 04/12/23 Interval history: She is seen today to follow-up her DKA and sepsis. She has Gram-negative rods growing in 1 blood culture. She is on ceftriaxone. Her anion gap has closed to 8 and her potassium has come up nicely. Her magnesium level yesterday was 2.5. Her blood sugars have ranged from 190 to 308 overnigh. The sodium is 126. The WBC is 15.4. Further explanation using a seed core operator, she says that she actually has her NPH insulin with her on [facility] but did not take it because she was not in the same amount of environmental heat here that she is in [place]. Somehow that made sense to her. She has her insulin and will be able to take it at home Exam Vital Signs (past 8 hours): - 04/12/23 00:01 04/12/23 00:00 04/12/23 00:00 Pulse Rate 91 H Respiratory Rate 14 Blood Pressure 101/57 L Pulse Oximetry 100 Oxygen Delivery Method Room Air 04/12/23 00:30 04/12/23 00:30 04/12/23 01:00 Pulse Rate 96 H Respiratory Rate 15 Blood Pressure 109/57 L 107/56 L Pulse Oximetry 100 Oxygen Delivery Method 04/12/23 01:00 04/12/23 01:30 04/12/23 01:30 Pulse Rate 96 H 96 H Respiratory Rate 19 12 Blood Pressure 106/56 L Pulse Oximetry 100 99 Oxygen Delivery Method 04/12/23 02:00 04/12/23 02:00 04/12/23 02:30 Pulse Rate 94 H Respiratory Rate 14 Blood Pressure 91/55 L 95/45 L Pulse Oximetry 99 Oxygen Delivery Method 04/12/23 02:30 04/12/23 03:00 04/12/23 03:00 Pulse Rate 93 H 93 H Respiratory Rate 18 16 Blood Pressure 91/54 L Pulse Oximetry 98 99 Oxygen Delivery Method 04/12/23 03:30 04/12/23 03:30 04/12/23 04:00 Pulse Rate 95 H Respiratory Rate 14 Blood Pressure 121/58 L 109/57 L Pulse Oximetry 100 Oxygen Delivery Method 04/12/23 04:00 Pulse Rate 96 H Respiratory Rate 12 Blood Pressure Pulse Oximetry 100 Oxygen Delivery Method Oxygen Delivery Method Room Air Narrative Exam Narrative: Alert and oriented x3. Heart is RRR without murmur Lungs are clear to auscultation bilaterally Abdomen is soft, bowel sounds positive, nontender, no organomegaly Extremities have no ankle edema Objective Labs 04/12/23 12:50 04/12/23 12:50 Labs: Laboratory Results - last 24 hr 04/11/23 04/11/23 04/11/23 15:43 15:45 15:45 WBC 25.8 H RBC 4.12 Hgb 12.2 Hct 35.8 L MCV 86.9 MCH 29.6 MCHC 34.0 RDW 13.2 Plt Count 320 Neut % (Auto) Not Reportable Lymph % (Auto) Not Reportable [place] % (Auto) Not Reportable Eos % (Auto) Not Reportable Baso % (Auto) Not Reportable Neut # (Auto) Lymph # (Auto) Not Reportable [place] # (Auto) Not Reportable Eos # (Auto) Baso # (Auto) Not Reportable Total Counted 100 Seg Neutrophils % 79.0 H Band Neutrophils % 6.0 Lymphocytes % (Manual) 5.0 L Atypical Lymphs % 1.0 H Monocytes % (Manual) 8.0 Metamyelocytes % 1.0 H Neutrophils # (Manual) 58049 H Smudge Cells 1+ H RBC Morphology See below [place] Cells 1+ H VBG pH 7.15 L* VBG pCO2 27.6 L VBG pO2 42 VBG HCO3 10 L VBG Total CO2 11 L VBG O2 Saturation 65 L VBG Base Excess -19.0 L FiO2 21 Sodium 111 L* Potassium 4.3 Chloride 85 L Carbon Dioxide 6 L* BUN 68 H Creatinine 2.55 H Estimated GFR 22 L BUN/Creatinine Ratio 26.7 H Glucose 625 H* Lactate Calcium 9.2 Phosphorus Magnesium Total Bilirubin 0.5 AST 17 ALT 16 Alkaline Phosphatase 183 H Ammonia Total Creatine Kinase Troponin I Total Protein 7.4 Albumin 3.6 Globulin 3.8 Albumin/Globulin Ratio 0.9 L Triglycerides Lipase Procalcitonin TSH Free T4 Urine Color Urine Appearance Urine pH Ur Specific [place] Urine Protein Urine Glucose (UA) Urine Ketones Urine Occult Blood Urine Nitrate Urine Bilirubin Ur Bilirubin Confirm Urine Urobilinogen Ur Leukocyte Esterase Urine RBC Urine WBC Ur Squamous Epith Cells Ur Renal Epithelial Cell Amorphous Sediment Urine Bacteria Hyaline Casts Ur Culture Indicated? Nasal Screen MRSA (PCR) Salicylates Acetaminophen < 10 Ethyl Alcohol < 10 Ketones 4.04 H 0804/11/23 04/11/23 15:45 15:45 15:45 WBC RBC Hgb Hct MCV MCH MCHC RDW Plt Count Neut % (Auto) Lymph % (Auto) [place] % (Auto) Eos % (Auto) Baso % (Auto) Neut # (Auto) Lymph # (Auto) [place] # (Auto) Eos # (Auto) Baso # (Auto) Total Counted Seg Neutrophils % Band Neutrophils % Lymphocytes % (Manual) Atypical Lymphs % Monocytes % (Manual) Metamyelocytes % Neutrophils # (Manual) Smudge Cells RBC Morphology [place] Cells VBG pH VBG pCO2 VBG pO2 VBG HCO3 VBG Total CO2 VBG O2 Saturation VBG Base Excess FiO2 Sodium Potassium Chloride Carbon Dioxide BUN Creatinine Estimated GFR BUN/Creatinine Ratio Glucose Lactate 1.1 Calcium Phosphorus 3.5 Magnesium 2.5 H Total Bilirubin AST ALT Alkaline Phosphatase Ammonia < 9 L Total Creatine Kinase 99 Troponin I 0.095 H Total Protein Albumin Globulin Albumin/Globulin Ratio Triglycerides Lipase 896 H Procalcitonin 8.85 H TSH Free T4 Urine Color Urine Appearance Urine pH Ur Specific [place] Urine Protein Urine Glucose (UA) Urine Ketones Urine Occult Blood Urine Nitrate Urine Bilirubin Ur Bilirubin Confirm Urine Urobilinogen Ur Leukocyte Esterase Urine RBC Urine WBC Ur Squamous Epith Cells Ur Renal Epithelial Cell Amorphous Sediment Urine Bacteria Hyaline Casts Ur Culture Indicated? Nasal Screen MRSA (PCR) Salicylates < 1.0 Acetaminophen Ethyl Alcohol Ketones 04/11/23 04/11/23 04/11/23 15:45 15:45 18:12 WBC RBC Hgb Hct MCV MCH MCHC RDW Plt Count Neut % (Auto) Lymph % (Auto) [place] % (Auto) Eos % (Auto) Baso % (Auto) Neut # (Auto) Lymph # (Auto) [place] # (Auto) Eos # (Auto) Baso # (Auto) Total Counted Seg Neutrophils % Band Neutrophils % Lymphocytes % (Manual) Atypical Lymphs % Monocytes % (Manual) Metamyelocytes % Neutrophils # (Manual) Smudge Cells RBC Morphology [place] Cells VBG pH VBG pCO2 VBG pO2 VBG HCO3 VBG Total CO2 VBG O2 Saturation VBG Base Excess FiO2 Sodium Potassium Chloride Carbon Dioxide BUN Creatinine Estimated GFR BUN/Creatinine Ratio Glucose Lactate Calcium Phosphorus Magnesium Total Bilirubin AST ALT Alkaline Phosphatase Ammonia Total Creatine Kinase Troponin I Total Protein Albumin Globulin Albumin/Globulin Ratio Triglycerides Lipase Procalcitonin TSH 6.28 H Free T4 0.99 Urine Color Yellow Urine Appearance Clear Urine pH 5.5 Ur Specific [place] 1.015 Urine Protein 1+ H Urine Glucose (UA) 3+ H Urine Ketones 1+ H Urine Occult Blood 2+ H Urine Nitrate Positive H Urine Bilirubin 1+ H Ur Bilirubin Confirm Positive H Urine Urobilinogen 1.0 Ur Leukocyte Esterase Trace H Urine RBC 1-5/hpf Urine WBC 10-30/hpf H Ur Squamous Epith Cells 1-5 /hpf Ur Renal Epithelial Cell 1-5/hpf H Amorphous Sediment 1+ Urine Bacteria Many (>30) H Hyaline Casts 1-5/lpf Ur Culture Indicated? Specimen cultured Nasal Screen MRSA (PCR) Salicylates Acetaminophen Ethyl Alcohol Ketones 04/11/23 04/11/23 04/11/23 18:52 20:05 20:05 WBC RBC Hgb Hct MCV MCH MCHC RDW Plt Count Neut % (Auto) Lymph % (Auto) [place] % (Auto) Eos % (Auto) Baso % (Auto) Neut # (Auto) Lymph # (Auto) [place] # (Auto) Eos # (Auto) Baso # (Auto) Total Counted Seg Neutrophils % Band Neutrophils % Lymphocytes % (Manual) Atypical Lymphs % Monocytes % (Manual) Metamyelocytes % Neutrophils # (Manual) Smudge Cells RBC Morphology [place] Cells VBG pH VBG pCO2 VBG pO2 VBG HCO3 VBG Total CO2 VBG O2 Saturation VBG Base Excess FiO2 Sodium 121 L D Potassium 3.2 L Chloride 98 Carbon Dioxide 9 L* BUN 60 H Creatinine 1.95 H Estimated GFR 30 L BUN/Creatinine Ratio 30.8 H Glucose 256 H D Lactate Calcium 8.6 Phosphorus Magnesium Total Bilirubin AST ALT Alkaline Phosphatase Ammonia Total Creatine Kinase Troponin I Total Protein Albumin Globulin Albumin/Globulin Ratio Triglycerides 282 H Lipase Procalcitonin TSH Free T4 Urine Color Urine Appearance Urine pH Ur Specific [place] Urine Protein Urine Glucose (UA) Urine Ketones Urine Occult Blood Urine Nitrate Urine Bilirubin Ur Bilirubin Confirm Urine Urobilinogen Ur Leukocyte Esterase Urine RBC Urine WBC Ur Squamous Epith Cells Ur Renal Epithelial Cell Amorphous Sediment Urine Bacteria Hyaline Casts Ur Culture Indicated? Nasal Screen MRSA (PCR) Not detected Salicylates Acetaminophen Ethyl Alcohol Ketones 04/12/23 04/12/23 04/12/23 01:17 05:26 05:26 WBC 15.4 H RBC 3.73 L Hgb 10.9 L Hct 30.9 L MCV 82.9 D MCH 29.1 MCHC 35.2 RDW 13.1 Plt Count 253 Neut % (Auto) 88.8 H Lymph % (Auto) 4.7 L [place] % (Auto) 6.1 Eos % (Auto) 0.2 L Baso % (Auto) 0.2 Neut # (Auto) 50082 H Lymph # (Auto) 700 L [place] # (Auto) 900 Eos # (Auto) 0 Baso # (Auto) 0 Total Counted Seg Neutrophils % Band Neutrophils % Lymphocytes % (Manual) Atypical Lymphs % Monocytes % (Manual) Metamyelocytes % Neutrophils # (Manual) Smudge Cells RBC Morphology [place] Cells VBG pH VBG pCO2 VBG pO2 VBG HCO3 VBG Total CO2 VBG O2 Saturation VBG Base Excess FiO2 Sodium 123 L 126 L Potassium 3.4 3.4 Chloride 103 107 Carbon Dioxide 13 L 11 L BUN 49 H 40 H Creatinine 1.41 H 1.09 H Estimated GFR 44 L 60 BUN/Creatinine Ratio 34.8 H 36.7 H Glucose 197 H 198 H Lactate Calcium 8.4 7.7 L Phosphorus Magnesium Total Bilirubin AST ALT Alkaline Phosphatase Ammonia Total Creatine Kinase Troponin I Total Protein Albumin Globulin Albumin/Globulin Ratio Triglycerides Lipase Procalcitonin TSH Free T4 Urine Color Urine Appearance Urine pH Ur Specific [place] Urine Protein Urine Glucose (UA) Urine Ketones Urine Occult Blood Urine Nitrate Urine Bilirubin Ur Bilirubin Confirm Urine Urobilinogen Ur Leukocyte Esterase Urine RBC Urine WBC Ur Squamous Epith Cells Ur Renal Epithelial Cell Amorphous Sediment Urine Bacteria Hyaline Casts Ur Culture Indicated? Nasal Screen MRSA (PCR) Salicylates Acetaminophen Ethyl Alcohol Ketones [facility] Medical History (Updated 04/12/23 @ 14:45 by Alex Luis MD) Diabetes Hypertension Social History household members: spouse Smoking Status: Unknown if ever smoked Assessment & Plan Assessment and plan (1) DKA (diabetic ketoacidosis): Status: Acute Assessment & Plan narrative: 1.? Acute diabetic ketoacidosis -She clarifies that she brought her insulin from [place] but didn't take it because the temperature here was not as warm as in [place]? -glucose 625, pH 7.15, AG 20, normal lactate supportive of DKA in patient who has been without her insulin for some time -initial 2 L bolus in ED, received 11 units (0.15/kg) bolus IV insulin and star kristel on insulin drip -Completed Insulin drip and changed to home NPH mid day 04/12 -Lispro ss started mid day 04/12 -resume Metformin on 04/13/23 -pending A1c to assess long-term control 2. Acute hyponatremia due to hypovolemia -corrected sodium 119 -continue monitoring with q.4 hours labs and avoid rapid correction -Na 126 on 04/12, follow 3. Acute kidney injury -managed with IV hydration and DKA treatment line -monitor urine output -monitor lytes, BUN and creatinine 4. Leukocytosis, elevated procalcitonin, GNR Bacteremia -elevated WBC likely due to DKA -check UA and chest x-ray to rule out infection -BC growing GNR - Continue Rocephin IV 5.? Elevated TSH -mild elevated TSH of 6.28 -check free T4 -discuss with patient whether taking thyroid medication 6. Elevated lipase -likely secondary to DKA, not pancreatitis Code status:? Full Surrogate: Spouse DVT prophylaxis:? SubQ heparin
--- NOTE | 2023-04-12 08:49 | PM.PN.EICU ---
Subjective Subjective IF CAMERA ACTIVATED, patient seen via real-time interactive audiovisual communication: Camera activated Consent obtained for tele-outpatient scheduler care: Yes Patient Location: ICU Provider location (State): [place] Other participants/roles: RN Interval history: Patient Summary: 58-year-old female with history of HTN and DM on insulin and metformin admitted with DKA, UTI, pancreatitis, leukocytosis and hyponatremia. Pt. had been out of her insulin for 5 days INJURY/SAFETY HAZARD ASSESSMENT. Initial AG was 20 with HCO3 of 6. Pt. started on Ceftriaxone, IVF, and Insulin drip Recent events: AG is now closed. Patient currently on insulin drip at 5.5 u/hr and last BG was 198. Patient currenlty denies n/v or abdominal pain and is hungry. Cr and WBC improved. Blood culture grew E. Coli. Current Medications Current Medications Medications: Home Medications losartan 50 mg tablet 50 mg PO DAILY 02/21/22 [History Confirmed 04/11/23] metformin 500 mg tablet 500 mg PO DAILY 02/21/22 [History Confirmed 04/11/23] prednisolone acetate 1 % eye drops,suspension (Pred Forte) See Rx Instructions .Route .COMPLEX #5 mL 02/21/22 [Rx Confirmed 04/11/23] insulin NPH isoph U-100 human 100 unit/mL subcutaneous cartridge 30 unit SUBCUT BID 04/11/23 [History Confirmed 04/11/23] Visit Medications (administered) Generic Name Dose Route Start Last Admin Trade Name Freq PRN Reason Stop Dose Admin Heparin Sodium (Porcine) 5,000 unit 04/11/23 21:00 04/11/23 20:51 Heparin 5,000 Unit/Ml Vial SUBCUT 5,000 unit BID GUANACO Administration INSULIN DRIP PREMIX 100 unit in 100 mls @ 6 mls/hr 04/11/23 16:45 04/12/23 05:00 Myxredlin Drip Premix IV 7 ml/hr TITRATE GUANACO 7 mls/hr Titration Protocol Ceftriaxone Sodium 1,000 mg/ 100 mls @ 200 mls/hr 04/11/23 20:45 04/11/23 22:31 Sodium Chloride IV Infused Q24H GUANACO Infusion POTASSIUM CHLORIDE IN WATER 10 meq in 100 mls @ 100 mls/hr 04/12/23 06:00 04/12/23 08:33 Potassium Cl 10 Meq/100 Ml Destinee IV 04/12/23 09:59 100 mls/hr Q1H GUANACO Administration Ondansetron HCl 4 mg 04/11/23 16:58 04/11/23 22:28 Ondansetron 4 Mg/2 Ml Inj IV 4 mg Q4HR PRN Administration Nausea And Vomiting Objective Labs 04/12/23 05:26 04/12/23 05:26 Labs: Laboratory Results - last 24 hr 04/11/23 04/11/23 04/11/23 15:43 15:45 15:45 WBC 25.8 H RBC 4.12 Hgb 12.2 Hct 35.8 L MCV 86.9 MCH 29.6 MCHC 34.0 RDW 13.2 Plt Count 320 Neut % (Auto) Not Reportable Lymph % (Auto) Not Reportable [place] % (Auto) Not Reportable Eos % (Auto) Not Reportable Baso % (Auto) Not Reportable Neut # (Auto) Lymph # (Auto) Not Reportable [place] # (Auto) Not Reportable Eos # (Auto) Baso # (Auto) Not Reportable Total Counted 100 Seg Neutrophils % 79.0 H Band Neutrophils % 6.0 Lymphocytes % (Manual) 5.0 L Atypical Lymphs % 1.0 H Monocytes % (Manual) 8.0 Metamyelocytes % 1.0 H Neutrophils # (Manual) 28941 H Smudge Cells 1+ H RBC Morphology See below Antonia Cells 1+ H VBG pH 7.15 L* VBG pCO2 27.6 L VBG pO2 42 VBG HCO3 10 L VBG Total CO2 11 L VBG O2 Saturation 65 L VBG Base Excess -19.0 L FiO2 21 Sodium 111 L* Potassium 4.3 Chloride 85 L Carbon Dioxide 6 L* BUN 68 H Creatinine 2.55 H Estimated GFR 22 L BUN/Creatinine Ratio 26.7 H Glucose 625 H* Lactate Calcium 9.2 Phosphorus Magnesium Total Bilirubin 0.5 AST 17 ALT 16 Alkaline Phosphatase 183 H Ammonia Total Creatine Kinase Troponin I Total Protein 7.4 Albumin 3.6 Globulin 3.8 Albumin/Globulin Ratio 0.9 L Triglycerides Lipase Procalcitonin TSH Free T4 Urine Color Urine Appearance Urine pH Ur Specific [place] Urine Protein Urine Glucose (UA) Urine Ketones Urine Occult Blood Urine Nitrate Urine Bilirubin Ur Bilirubin Confirm Urine Urobilinogen Ur Leukocyte Esterase Urine RBC Urine WBC Ur Squamous Epith Cells Ur Renal Epithelial Cell Amorphous Sediment Urine Bacteria Hyaline Casts Ur Culture Indicated? Nasal Screen MRSA (PCR) Salicylates Acetaminophen < 10 Ethyl Alcohol < 10 Ketones 4.04 H 04/11/23 04/11/23 04/11/23 15:45 15:45 15:45 WBC RBC Hgb Hct MCV MCH MCHC RDW Plt Count Neut % (Auto) Lymph % (Auto) [place] % (Auto) Eos % (Auto) Baso % (Auto) Neut # (Auto) Lymph # (Auto) [place] # (Auto) Eos # (Auto) Baso # (Auto) Total Counted Seg Neutrophils % Band Neutrophils % Lymphocytes % (Manual) Atypical Lymphs % Monocytes % (Manual) Metamyelocytes % Neutrophils # (Manual) Smudge Cells RBC Morphology [place] Cells VBG pH VBG pCO2 VBG pO2 VBG HCO3 VBG Total CO2 VBG O2 Saturation VBG Base Excess FiO2 Sodium Potassium Chloride Carbon Dioxide BUN Creatinine Estimated GFR BUN/Creatinine Ratio Glucose Lactate 1.1 Calcium Phosphorus 3.5 Magnesium 2.5 H Total Bilirubin AST ALT Alkaline Phosphatase Ammonia < 9 L Total Creatine Kinase 99 Troponin I 0.095 H Total Protein Albumin Globulin Albumin/Globulin Ratio Triglycerides Lipase 896 H Procalcitonin 8.85 H TSH Free T4 Urine Color Urine Appearance Urine pH Ur Specific [place] Urine Protein Urine Glucose (UA) Urine Ketones Urine Occult Blood Urine Nitrate Urine Bilirubin Ur Bilirubin Confirm Urine Urobilinogen Ur Leukocyte Esterase Urine RBC Urine WBC Ur Squamous Epith Cells Ur Renal Epithelial Cell Amorphous Sediment Urine Bacteria Hyaline Casts Ur Culture Indicated? Nasal Screen MRSA (PCR) Salicylates < 1.0 Acetaminophen Ethyl Alcohol Ketones 04/11/23 04/11/23 04/11/23 15:45 15:45 18:12 WBC RBC Hgb Hct MCV MCH MCHC RDW Plt Count Neut % (Auto) Lymph % (Auto) [place] % (Auto) Eos % (Auto) Baso % (Auto) Neut # (Auto) Lymph # (Auto) [place] # (Auto) Eos # (Auto) Baso # (Auto) Total Counted Seg Neutrophils % Band Neutrophils % Lymphocytes % (Manual) Atypical Lymphs % Monocytes % (Manual) Metamyelocytes % Neutrophils # (Manual) Smudge Cells RBC Morphology [place] Cells VBG pH VBG pCO2 VBG pO2 VBG HCO3 VBG Total CO2 VBG O2 Saturation VBG Base Excess FiO2 Sodium Potassium Chloride Carbon Dioxide BUN Creatinine Estimated GFR BUN/Creatinine Ratio Glucose Lactate Calcium Phosphorus Magnesium Total Bilirubin AST ALT Alkaline Phosphatase Ammonia Total Creatine Kinase Troponin I Total Protein Albumin Globulin Albumin/Globulin Ratio Triglycerides Lipase Procalcitonin TSH 6.28 H Free T4 0.99 Urine Color Yellow Urine Appearance Clear Urine pH 5.5 Ur Specific [place] 1.015 Urine Protein 1+ H Urine Glucose (UA) 3+ H Urine Ketones 1+ H Urine Occult Blood 2+ H Urine Nitrate Positive H Urine Bilirubin 1+ H Ur Bilirubin Confirm Positive H Urine Urobilinogen 1.0 Ur Leukocyte Esterase Trace H Urine RBC 1-5/hpf Urine WBC 10-30/hpf H Ur Squamous Epith Cells 1-5 /hpf Ur Renal Epithelial Cell 1-5/hpf H Amorphous Sediment 1+ Urine Bacteria Many (>30) H Hyaline Casts 1-5/lpf Ur Culture Indicated? Specimen cultured Nasal Screen MRSA (PCR) Salicylates Acetaminophen Ethyl Alcohol Ketones 04/11/23 04/11/23 04/11/23 18:52 20:05 20:05 WBC RBC Hgb Hct MCV MCH MCHC RDW Plt Count Neut % (Auto) Lymph % (Auto) [place] % (Auto) Eos % (Auto) Baso % (Auto) Neut # (Auto) Lymph # (Auto) [place] # (Auto) Eos # (Auto) Baso # (Auto) Total Counted Seg Neutrophils % Band Neutrophils % Lymphocytes % (Manual) Atypical Lymphs % Monocytes % (Manual) Metamyelocytes % Neutrophils # (Manual) Smudge Cells RBC Morphology [place] Cells VBG pH VBG pCO2 VBG pO2 VBG HCO3 VBG Total CO2 VBG O2 Saturation VBG Base Excess FiO2 Sodium 121 L D Potassium 3.2 L Chloride 98 Carbon Dioxide 9 L* BUN 60 H Creatinine 1.95 H Estimated GFR 30 L BUN/Creatinine Ratio 30.8 H Glucose 256 H D Lactate Calcium 8.6 Phosphorus Magnesium Total Bilirubin AST ALT Alkaline Phosphatase Ammonia Total Creatine Kinase Troponin I Total Protein Albumin Globulin Albumin/Globulin Ratio Triglycerides 282 H Lipase Procalcitonin TSH Free T4 Urine Color Urine Appearance Urine pH Ur Specific [place] Urine Protein Urine Glucose (UA) Urine Ketones Urine Occult Blood Urine Nitrate Urine Bilirubin Ur Bilirubin Confirm Urine Urobilinogen Ur Leukocyte Esterase Urine RBC Urine WBC Ur Squamous Epith Cells Ur Renal Epithelial Cell Amorphous Sediment Urine Bacteria Hyaline Casts Ur Culture Indicated? Nasal Screen MRSA (PCR) Not detected Salicylates Acetaminophen Ethyl Alcohol Ketones 04/12/23 04/12/23 04/12/23 01:17 05:26 05:26 WBC 15.4 H RBC 3.73 L Hgb 10.9 L Hct 30.9 L MCV 82.9 D MCH 29.1 MCHC 35.2 RDW 13.1 Plt Count 253 Neut % (Auto) 88.8 H Lymph % (Auto) 4.7 L [place] % (Auto) 6.1 Eos % (Auto) 0.2 L Baso % (Auto) 0.2 Neut # (Auto) 85203 H Lymph # (Auto) 700 L [place] # (Auto) 900 Eos # (Auto) 0 Baso # (Auto) 0 Total Counted Seg Neutrophils % Band Neutrophils % Lymphocytes % (Manual) Atypical Lymphs % Monocytes % (Manual) Metamyelocytes % Neutrophils # (Manual) Smudge Cells RBC Morphology [place] Cells VBG pH VBG pCO2 VBG pO2 VBG HCO3 VBG Total CO2 VBG O2 Saturation VBG Base Excess FiO2 Sodium 123 L 126 L Potassium 3.4 3.4 Chloride 103 107 Carbon Dioxide 13 L 11 L BUN 49 H 40 H Creatinine 1.41 H 1.09 H Estimated GFR 44 L 60 BUN/Creatinine Ratio 34.8 H 36.7 H Glucose 197 H 198 H Lactate Calcium 8.4 7.7 L Phosphorus Magnesium Total Bilirubin AST ALT Alkaline Phosphatase Ammonia Total Creatine Kinase Troponin I Total Protein Albumin Globulin Albumin/Globulin Ratio Triglycerides Lipase Procalcitonin TSH Free T4 Urine Color Urine Appearance Urine pH Ur Specific [place] Urine Protein Urine Glucose (UA) Urine Ketones Urine Occult Blood Urine Nitrate Urine Bilirubin Ur Bilirubin Confirm Urine Urobilinogen Ur Leukocyte Esterase Urine RBC Urine WBC Ur Squamous Epith Cells Ur Renal Epithelial Cell Amorphous Sediment Urine Bacteria Hyaline Casts Ur Culture Indicated? Nasal Screen MRSA (PCR) Salicylates Acetaminophen Ethyl Alcohol Ketones Exam Vital Signs (past 8 hours): - 04/12/23 01:00 04/12/23 01:00 04/12/23 01:30 Temperature Pulse Rate 96 H Respiratory Rate 19 Blood Pressure 107/56 L 106/56 L Pulse Oximetry 100 04/12/23 01:30 04/12/23 02:00 04/12/23 02:00 Temperature Pulse Rate 96 H 94 H Respiratory Rate 12 14 Blood Pressure 91/55 L Pulse Oximetry 99 99 04/12/23 02:30 04/12/23 02:30 04/12/23 03:00 Temperature Pulse Rate 93 H Respiratory Rate 18 Blood Pressure 95/45 L 91/54 L Pulse Oximetry 98 04/12/23 03:00 04/12/23 03:30 04/12/23 03:30 Temperature Pulse Rate 93 H 95 H Respiratory Rate 16 14 Blood Pressure 121/58 L Pulse Oximetry 99 100 04/12/23 04:00 04/12/23 04:00 04/12/23 04:30 Temperature 97.2 F L Pulse Rate 96 H Respiratory Rate 12 Blood Pressure 109/57 L 105/54 L Pulse Oximetry 100 04/12/23 04:30 04/12/23 05:00 04/12/23 05:00 Temperature Pulse Rate 94 H 93 H Respiratory Rate 12 13 Blood Pressure 97/54 L Pulse Oximetry 100 100 04/12/23 05:30 04/12/23 05:30 04/12/23 06:00 Temperature Pulse Rate 90 Respiratory Rate 15 Blood Pressure 121/59 L 118/58 L Pulse Oximetry 100 04/12/23 06:00 04/12/23 06:30 04/12/23 06:30 Temperature Pulse Rate 90 91 H Respiratory Rate 13 13 Blood Pressure 112/56 L Pulse Oximetry 100 100 04/12/23 07:00 04/12/23 07:00 04/12/23 07:30 Temperature Pulse Rate 91 H Respiratory Rate 14 Blood Pressure 116/56 L 114/64 Pulse Oximetry 100 04/12/23 07:30 Temperature Pulse Rate 89 Respiratory Rate 14 Blood Pressure Pulse Oximetry 100 Oxygen Delivery Method Room Air Narrative Exam Narrative: Patient seen over two way audio visual system. She is currently sleeping in bed with stable vitals. Assessment & Plan Assessment & Plan narrative: Assessment DKA-resolved non-AG metabolic acidosis- from getting large amount of saline infusion as park of DKA treatment? hyponatremia DM UTI Pancreatitis CARLOS-improved E. Coli bacteremia Plan -start patient's home regiment of insulin NPH 30 u SQ BID -SSI to cover for high BG -wean insulin drip to off -start carb consistent diet -stop IVF -check BMP and replace electrolytes as needed -free water restriction for hyponatremia (<1L a day) -f/u on cultures and adjust anbiotics if needed PPx: SQ heparin CCT spent 50 min
[2023-04-12 08:58] LABS: CTX-M Resistance Not Detected (Not Detect); IMP Resistance Not Detected (Not Detect); KPC Resistance Not Detected (Not Detect)
[2023-04-12 08:59] LABS: Acinetobacter calcoa-baumannii Not Detected (Not Detect); Bacteroides fragilis Not Detected (Not Detect); Enterobacter cloacae complex Not Detected (Not Detect); Enterobacterales DETECTED (Not Detect); Enterococcus faecalis Not Detected (Not Detect); Enterococcus faecium Not Detected (Not Detect); Listeria monocytogenes Not Detected (Not Detect); NDM Resistance Not Detected (Not Detect); OXA-48-like Resistance Not Detected (Not Detect); Staphylococcus epidermidis Not Detected (Not Detect); Staphylococcus lugdunensis Not Detected (Not Detect); Staphylococcus species Not Detected (Not Detect); Streptococcus agalactiae (Gr B Not Detected (Not Detect); Streptococcus pneumonia Not Detected (Not Detect); Streptococcus pyogenes (Gr A) Not Detected (Not Detect); Streptococcus species Not Detected (Not Detect); VIM Resistance Not Detected (Not Detect); mcr-1 Resistance Not Detected (Not Detect)
[2023-04-12 09:00] LABS: Candida albicans Not Detected (Not Detect); Candida auris Not Detected (Not Detect); Candida glabrata Not Detected (Not Detect); Candida krusei Not Detected (Not Detect); Candida parapsilosis Not Detected (Not Detect); Candida tropicalis Not Detected (Not Detect); Cryptococcus neoformans/gatti Not Detected (Not Detect); Haemophilus influenzae Not Detected (Not Detect); Klebsiella aerogenes Not Detected (Not Detect); Neisseria meningitidis Not Detected (Not Detect); Proteus species Not Detected (Not Detect); Pseudomonas aeruginosa Not Detected (Not Detect); Salmonella species Not Detected (Not Detect); Serratia marcescens Not Detected (Not Detect); Stenotrophomonas maltophilia Not Detected (Not Detect)
[2023-04-12 09:02] LABS: Lipase 190 U/L (23-300); Magnesium 1.9 mg/dL (1.6-2.3)
[2023-04-12] MEDS: HEPARIN 5,000 UNIT/ML VIAL 5000 UNIT SUBCUT ×2 (10:45→21:06)
[2023-04-12] MEDS: INSULIN NPH 100 UNIT/ML 10ML VIAL 30 UNIT SUBCUT ×2 (10:45→17:09)
[2023-04-12] MEDS: INSULIN LISPRO 100 UNIT/ML 3ML VIAL SUBCUT ×3 (12:18→21:02)
--- NOTE | 2023-04-12 12:24 | CM.DANOTE ---
DCP Assessment Note: Patient is a 58yo female here under inpatient care following a diabetes emergency. PCP: Doctor in [place]. Payer: self pay ACCOUNT ADJUSTER reviewed EMR. Per the chart, patient is here with her spouse from [place] to visit her niece on [facility] [facility]. They come every year around this time to visit. Patient and spouse primarily speak Maori. Per provider in rounds, patient will likely d/c Thursday morning. ACCOUNT ADJUSTER utilized translation services of the wonderful nurse Jaja. ACCOUNT ADJUSTER entered room and introduced self and role. Patient was laying in bed and remained quiet throughout the interaction. Most information from the assessment came from spouse at bedside, Jennifer Mast. Patient is active and independent at baseline and drives. Patient lives in [place] with spouse. Spouse reports they have her insulin, she just was not taking it the past few days. Plan: patient will d/c home with spouse when medically stable back to [place]. CM team will continue to follow closely for needs. MANDO Marquis Discharge Planning/Care Management CM Discharge Assessment Start: 04/12/23 12:11 Freq: Status: Active Protocol: Document 04/12/23 12:12 (Rec: 04/12/23 12:13 [id number]) Discharge Planning Assessment Assigned Hospice Massage Therapist MANDO Catalan DPOA/Assigned Designee Name Jennifer Mast (spouse) Advance Directives? No History Provided By Patient,Significant Other, Medical Record Prior Living Arrangements House Household Members spouse Type of transporation used prior to Drives own vehicle admit Independent with ADL's Yes Is patient alert and oriented? Yes Discharge Plan Home Transportation Arrangement family in POV Whiteboard Updated in Patient Room with Yes name and ext. # of Hospice Massage Therapist Review Status In Process Next Review Type Continued Stay Review
[2023-04-12 13:00] LABS: Add Manual Diff / Slide Review NO; Basophils Absolute Auto 0 /uL (0-100); Basophils Percent Auto 0.2 % (0-2); Eosinophils Absolute Auto 0 /uL (0-450); Eosinophils Percent Auto 0.2 % (2-4); Hematocrit 34.1 % (36-46); Hemoglobin 11.8 g/dL (12.0-16.0); Lymphocytes Absolute Auto 900 /uL (1100-4500); Lymphocytes Percent Auto 4.8 % (25-40); Mean Corpuscular HGB Conc 34.6 % (30-36); Mean Corpuscular Hemoglobin 28.9 PG (26-34); Mean Corpuscular Volume 83.6 fL (80-100); Monocytes Absolute Auto 1400 /uL (0-900); Monocytes Percent Auto 7.8 % (3-14); Neutrophils Absolute Auto 16100 /uL (1500-7000); Platelet Count 305 X10^3/uL (150-400); Red Blood Cell Count 4.07 X10^6/uL (4.0-5.2); Red Cell Distribution Width 13.5 % (11.6-14.8); White Blood Cell Count 18.5 X10^3/uL (4.5-11.0)
[2023-04-12 13:07] LABS: BUN Creatinine Ratio 31.6 (6-22); Blood Urea Nitrogen 31 mg/dL (7-17); Calcium 8.7 mg/dL (8.4-10.2); Carbon Dioxide 13 mmol/L (22-32); Chloride 105 mmol/L (98-107); Estimated Glomerular Filt Rate > 60 mL/min (>60); Glucose 169 mg/dL (70-100); HEMOLYSIS < 15 (0-50); Potassium 4.4 mmol/L (3.4-5.1); Sodium 125 mmol/L (137-145)
--- NOTE | 2023-04-12 19:18 | PC.NURSE ---
Day shift: Pt A&Ox4 with certified translation at bedside. Pt reports feeling better than yesterday. Pt bridged from insulin gtt with home dose of NPH at 1045, insulin gtt turned off. Pt received lispro pre-meal coverage, tolerated carb consistent diet at lunch. Pt up to chair, kate d/c'd, ambulated to BR with SBA FWW. Pt educated on importance of using call light and calling for help to stand and ambulate, translated, pt verbalized understanding. Bed alarm active, call light within reach, VSS. Care ongoing.
[2023-04-12] MEDS: cefTRIAXone 1,000 MG in SODIUM CHLORIDE 0.9% 100 ML 100 MG IV (21:06)
[2023-04-13 04:00] VITALS: BP 130/73; PULSE 93; RESP 16; TEMP 36.1; O2SAT 99
[2023-04-13 05:16] LABS: BUN Creatinine Ratio 28.9 (6-22); Blood Urea Nitrogen 22 mg/dL (7-17); Calcium 8.6 mg/dL (8.4-10.2); Carbon Dioxide 15 mmol/L (22-32); Chloride 104 mmol/L (98-107); Estimated Glomerular Filt Rate > 60 mL/min (>60); Glucose 243 mg/dL (70-100); HEMOLYSIS < 15 (0-50); Potassium 3.3 mmol/L (3.4-5.1); Sodium 128 mmol/L (137-145)
[2023-04-13 05:17] LABS: Add Manual Diff / Slide Review NO; Basophils Absolute Auto 0 /uL (0-100); Basophils Percent Auto 0.2 % (0-2); Eosinophils Absolute Auto 0 /uL (0-450); Eosinophils Percent Auto 0.3 % (2-4); Hematocrit 33.4 % (36-46); Hemoglobin 11.8 g/dL (12.0-16.0); Lymphocytes Absolute Auto 1200 /uL (1100-4500); Lymphocytes Percent Auto 8.6 % (25-40); Mean Corpuscular HGB Conc 35.4 % (30-36); Mean Corpuscular Hemoglobin 29.4 PG (26-34); Mean Corpuscular Volume 83.1 fL (80-100); Monocytes Absolute Auto 900 /uL (0-900); Monocytes Percent Auto 6.9 % (3-14); Neutrophils Absolute Auto 11500 /uL (1500-7000); Platelet Count 317 X10^3/uL (150-400); Red Blood Cell Count 4.03 X10^6/uL (4.0-5.2); Red Cell Distribution Width 13.8 % (11.6-14.8); White Blood Cell Count 13.6 X10^3/uL (4.5-11.0)
[2023-04-13 06:06] LABS: Labcorp Hemoglobin (Hb) A1c 14.3 % (4.8-5.6)
[2023-04-13] MEDS: INSULIN NPH 100 UNIT/ML 10ML VIAL 30 UNIT SUBCUT (06:59)
[2023-04-13 08:00] VITALS: BP 118/65; PULSE 93; RESP 16; TEMP 36.3; O2SAT 100
[2023-04-13] MEDS: INSULIN LISPRO 100 UNIT/ML 3ML VIAL SUBCUT ×2 (08:32→12:13)
[2023-04-13] MEDS: POTASSIUM CHLORIDE 20 MEQ TAB 40 MEQ PO (08:33)
[2023-04-13 08:34] VITALS: BP 118/65
[2023-04-13] MEDS: METFORMIN HCL 500 MG TABLET PO (08:34)
[2023-04-13] MEDS: HEPARIN 5,000 UNIT/ML VIAL 5000 UNIT SUBCUT (08:34)
--- NOTE | 2023-04-13 09:40 | CM.DPC ---
Addendum entered by MANDO Marquis 04/13/23 15:14: Nursing staff reported patient spouse had questions regarding financial assistance for bill. Omar Martino from patient accounts kindly sent over cymraes version of application. VARYING EXCEPTIONALITIES TEACHER utilized tablet for translation services. VARYING EXCEPTIONALITIES TEACHER gave family application and in slovak and in cymraes. Spouse reported they already had application from ER and nieces spouse was helping them fill it out. VARYING EXCEPTIONALITIES TEACHER directed patient spouse to patient accounts to drop it off/mail it in. SL Original Note: DCP Continued: VARYING EXCEPTIONALITIES TEACHER reviewed EMR. VARYING EXCEPTIONALITIES TEACHER was stopped in hallway by patient's spouse, had questions re: d/c [place]. Per provider, patient will have testing done at 1300 today, likely d/c at 1500. VARYING EXCEPTIONALITIES TEACHER utilized electronic translation to communicate this to patient. Patient and spouse expressed understanding. Plan: d/c home today when medically stable. transport with family. CM team will continue to follow closely. MANDO Marquis
[2023-04-13 12:04] LABS: BUN Creatinine Ratio 24.4 (6-22); Blood Urea Nitrogen 19 mg/dL (7-17); Calcium 8.6 mg/dL (8.4-10.2); Carbon Dioxide 17 mmol/L (22-32); Chloride 104 mmol/L (98-107); Estimated Glomerular Filt Rate > 60 mL/min (>60); Glucose 248 mg/dL (70-100); HEMOLYSIS < 15 (0-50); Potassium 3.7 mmol/L (3.4-5.1); Sodium 127 mmol/L (137-145)
--- NOTE | 2023-04-13 14:13 | P.DS_ITS ---
History of Present Illness History of Present Illness Date Patient Seen: 04/13/23 Time Patient Seen: 14:14 Chief complaint: DIABETES/ HEART RATE Narrative: Patient is Portuguese speaking only 58-year-old female with history of diabetes managed with insulin and metformin, hypertension presents to the ED with concerns of elevated blood sugar and not feeling well. Workers Compensation Coordinator services are utilized in getting history from and and her . Patient indicates she has been out of her insulin for 5 days. Seems they travel back and forth from [place] and she left her insulin at home. She reports abdominal pain and nausea but denies vomiting. She denies chest pain, shortness at breath, cough or fevers. She does report urinary discomfort. In ED, she was afebrile and normotensive. Labs are concerning for glucose of 625, sodium 111, potassium 4.3, chloride 85, HC03 6, BUN 68, creatinine 2.55. Her anion gap is 20. Venous gas pH 7.15, pCO2 27, PO2 42. Additionally noted to have high procalcitonin 8.85, elevated TSH 6.28, urinalysis and chest x-ray are pending. Discharge Providers Provider Date of admission: 04/11/23 16:29 Discharge Date: 04/13/23 Primary care physician: Baldo Parker MD Consults: 04/11/23 16:59 Consult to Tele-gusset maker Routine Comment: Consulting Provider: Tracey Tele-intensivists Reason for consultation: Field Crop Harvest Worker services Has provider been notified: Yes Discharge provider: Ki Richards DO Summary Hospital Course Discharge Diagnosis: 1.? Acute diabetic ketoacidosis 2. Bacteremia secondary to acute cystitis with E. coli 3. Acute hyponatremia due to hypovolemia 4. Acute kidney injury 5. Elevated lipase Hospital Course: This is a 58 year old icelandic speaking female admitted with DKA. She had a positive UA with blood cultures growing E. coli eventually. She also stopped taking her insulin due to some confusion about the cooler weather. She was provided with education on importance of continued insulin use multiple times with many providers. Her DKA resolved and she was adequately treated with her home dosing of insulin after completion of her insulin drip in the ICU. Her hyponatremia and CARLOS present on admission also improved with fluids and are due to dehydration in the setting of DKA. Her elevated lipase is thought secondary to DKA as well. No changes to her home medications are recommended on discharge, except for completion of antibiotics with cefdinir based on penicillin resistance of her E. coli bacteremia. She was sent home with another 10 days of antibiotic therapy. Time Spent with Patient Time spent: Greater than 30 minutes Exam Vital Signs (past 8 hours): - 04/13/23 08:00 04/13/23 08:34 Temperature 97.3 F L Pulse Rate 93 H Respiratory Rate 16 Blood Pressure 118/65 118/65 Pulse Oximetry 100 Oxygen Delivery Method Room Air Oxygen Flow Rate 0 Narrative Exam Narrative: Alert and oriented x3. Heart is RRR without murmur Lungs are clear to auscultation bilaterally Abdomen is soft, bowel sounds positive, nontender, no organomegaly Extremities have no ankle edema Objective Labs 04/13/23 04:33 04/13/23 11:35 Labs: Laboratory Results - last 24 hr 04/11/23 04/13/23 04/13/23 20:05 04:33 04:33 WBC 13.6 H RBC 4.03 Hgb 11.8 L Hct 33.4 L MCV 83.1 MCH 29.4 MCHC 35.4 RDW 13.8 Plt Count 317 Neut % (Auto) 84.0 H Lymph % (Auto) 8.6 L [place] % (Auto) 6.9 Eos % (Auto) 0.3 L Baso % (Auto) 0.2 Neut # (Auto) 09262 H Lymph # (Auto) 1200 [place] # (Auto) 900 Eos # (Auto) 0 Baso # (Auto) 0 Sodium 128 L Potassium 3.3 L Chloride 104 Carbon Dioxide 15 L BUN 22 H Creatinine 0.76 Estimated GFR > 60 BUN/Creatinine Ratio 28.9 H Glucose 243 H Hgb A1c (Ref Lab) 14.3 H Calcium 8.6 04/13/23 04/13/23 11:35 13:02 WBC RBC Hgb Hct MCV MCH MCHC RDW Plt Count Neut % (Auto) Lymph % (Auto) [place] % (Auto) Eos % (Auto) Baso % (Auto) Neut # (Auto) Lymph # (Auto) [place] # (Auto) Eos # (Auto) Baso # (Auto) Sodium 127 L Cancelled Potassium 3.7 Cancelled Chloride 104 Cancelled Carbon Dioxide 17 L Cancelled BUN 19 H Cancelled Creatinine 0.78 Cancelled Estimated GFR > 60 Cancelled BUN/Creatinine Ratio 24.4 H Cancelled Glucose 248 H Cancelled Hgb A1c (Ref Lab) Calcium 8.6 Cancelled [facility] Medical History (Updated 04/12/23 @ 14:45 by Alex Luis MD) Diabetes Hypertension Social History household members: spouse Smoking Status: Unknown if ever smoked Discharge Plan Discharge Plan Patient Disposition: Home Provider Discharge Comment: Admitted to the hospital with DKA, continue to take insulin. Also found to have UTI and bactermia. Complete full course of antibiotics, sent to [facility]. Discharge orders & Medications Prescriptions: New cefdinir 300 mg capsule 300 mg PO BID 10 Days Qty: 20 0RF Continued insulin NPH isoph U-100 human 100 unit/mL Cartridge 30 unit SUBCUT BID losartan 50 mg tablet 50 mg PO DAILY metformin 500 mg tablet 500 mg PO DAILY prednisolone acetate [Pred Forte] 1 % drops,suspension See Rx Instructions .ROUTE .COMPLEX Qty: 5 0RF Rx Instructions: Place 2 drops in the right eye 3 times daily. Follow up/Referrals: Baldo Parker MD [Primary Care Provider] - Diet/Activity/Treatments Diet: Diet as Tolerated and Carb-consistent/Diabetic Activity: As tolerated, no restrictions Visit Report/Discharge Packet Instructions: DI for Urinary Tract Infection (UTI), DI for Diabetic Ketoacidosis Stand Alone Forms: Patient Portal/API, Stroke Signs & Symptoms Discharge Data Primary Care Provider: Baldo Parker Discharges patient from system. Discharge Date/Time: 04/13/23 15:35
--- NOTE | 2023-04-13 15:31 | PC.NURSE ---
Discharge: Translation services were utilized during the discharge of this pt due to language barriers. Pt able to verbalize understanding and teachback via translation services. Pt advised to continue PO antibiotics until completed, to continue taking her home insulin dose, and to follow up with her primary care doctor when home, and to report back to the ED if symptoms arrive. Written information was provided in Montserratian (the patient's primary and only language). IV's d/c'd, telemetry removed. Pt wheeled to [employer] by this RN with spouse at approximately 1535.
== END 2023-04-13 15:35 | disposition home or self-care (01) | DRG 638 ==
LOC: ED 16:28 → AC 16:30 → ICU 18:27 → AC 04-12 16:13
PROVIDERS: Family Medicine; Internal Medicine; Admitting Provider Internal Medicine; Emergency Provider Emergency Medicine; PCP Family Medicine; Referring Provider Emergency Medicine; Visit Provider Internal Medicine
DX: E11.10 Type 2 diabetes mellitus with ketoacidosis without coma (principal); E87.1 Hypo-osmolality and hyponatremia; N17.9 Acute kidney failure, unspecified; N30.00 Acute cystitis without hematuria; B96.20 Unspecified Escherichia coli [E. coli] as the cause of diseases classified elsewhere; E86.1 Hypovolemia; R74.8 Abnormal levels of other serum enzymes; E86.0 Dehydration; I10 Essential (primary) hypertension; Z79.4 Long term (current) use of insulin; Z79.84 Long term (current) use of oral hypoglycemic drugs
CPT/HCPCS: 36415; 71045; 80048; 80053; 80320; 80329; 81001; 81003; 82009; 82140; 82550; 82805; 82962; 83036; 83605; 83690; 83735; 84100; 84145; 84439; 84443; 84478; 84484; 85007; 85025; 87040; 87077; 87086; 87154; 87186; 87797; 93005; 96361; 96365; 96366; 96376; 99284; 99285; G0480; J0696; J1644; J1815; J2405